=== PATIENT | male | born 1955 | race Two or more races ===

== ENCOUNTER 2025-01-08 05:25 | Inpatient (IN) | payer MEDICAID, MEDICARE, OTHER ==
[~2025-01-08] VITALS: Ht 177.8 cm; Wt 80.4 kg
--- NOTE | 2025-01-08 05:49 | ED.PDOC ---
HPI Comments 69-year-old male came to ER via EMS due to chest pains. Patient with a history of hypertension, has been having left-sided chest pains with shortness of breath on exertion for the past 4 days, worsened yesterday. Had 2 near syncope attacks and dizziness. Patient was seen at [facility] yesterday, noted systolic murmur. Multiple diagnostic tests done Patient transferred to this institution for further evaluation and management. Given aspirin and nitroglycerin while in route. 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 Notes Allergies: Coded Allergies: No Known Drug Allergy (Verified Allergy, Unknown, 01/08/25) Information Source: Patient, Emergency Med Personnel Mode of Arrival: EMS Severity: Moderate Timing: Days Duration: Intermittent Prehospital treatment: ASA, NTG Location: Chest (L) Radiation: Shoulder (L) Quality: Pressure Onset: With Light Exertion Cardiac Risk Factors: Smoker, HTN History of: Similar pain in past Associated Signs and Symptoms: SOB Past Medical History PAST MEDICAL HISTORY: HTN Surgical History: Denies all surgeries Family History Family History: No family hx of Heart ramnoa Social History Smoker: Non-Smoker Alcohol: Denies ETOH Use Drugs: Denies Drug Use Lives In: Home Constitutional: denies: chills, diaphoresis, fatigue, fever, malaise, sweats, weakness, others EENTM: denies: blurred vision, double vision, ear bleeding, ear discharge, ear drainage, ear pain, ear ringing, eye pain, eye redness, hearing loss, mouth pain, mouth swelling, nasal discharge, nose bleeding, nose congestion, nose pain, photophobia, tearing, throat pain, throat swelling, voice changes, others Respiratory: denies: cough, hemoptysis, orthopnea, SOB at rest, shortness of breath, SOB with excertion, stridor, wheezing, others Cardiovascular: reports: chest pain, dizzy spells; denies: diaphoresis, Dyspnea on exertion, edema, irregular heart beat, left arm pain, lightheadedness, palpitations, PND, syncope, others Gastrointestinal: denies: abdomen distended, abdominal pain, blood streaked bowels, constipated, diarrhea, dysphagia, difficulty swallowing, hematemesis, melena, nausea, poor appetite, poor fluid intake, rectal bleeding, rectal pain, vomiting, others Genitourinary: denies: burning, dysuria, flank pain, frequency, hematuria, incontinence, penile discharge, penile sore, pain, testicle pain, testicle swelling, urgency, others Neurological: reports: dizziness; denies: fainting, headache, left sided numbness, left sided weakness, numbness, paresthesia, pre-existing deficit, right sided numbness, right sided weakness, seizure, speech problems, tingling, tremors, weakness, others Musculoskeletal: denies: back pain, gout, joint pain, joint swelling, muscle pain, muscle stiffness, neck pain, others Integumetry: denies: bruises, change in color, change in hair/nails, dryness, laceration, lesions, lumps, rash, wounds, others Allergic/Immunocompromised: denies: Difficulty Healing, Frequent Infections, Hives, Itching, others Hematologic/Lymphatic: denies: anemia, blood clots, easy bleeding, easy bruising, swollen glands, others Endocrine: denies: excessive hunger, excessive sweating, excessive thirst, excessive urination, flushing, intolerance to cold, intolerance to heat, unexplained weight gain, unexplained weight loss, others Psychiatric: denies: anxiety, bipolar disorder, depression, hopeless, panic disorder, schizophrenia, sleepless, suicidal, others Physical Exam General Appearance: No Apparent Distress, Normal HEENT: Normal ENT Inspection, Pharynx Normal, TMs Normal Neck: Full Range of Motion, Non-Tender, Normal, Normal Inspection Respiratory: Chest Non-Tender, Lungs Clear, No Accessory Muscle Use, No Respiratory Distress, Normal Breath Sounds Cardiovascular: No Edema, No JVD, No Murmur, No Gallop, Normal Peripheral Pulses, Regular Rate/Rhythm, Systolic Murmur (Holosystolic murmur) Breast Exam: Deferred Gastrointestinal: No Organomegaly, Non Tender, No Pulsatile Mass, Normal Bowel Sounds, Soft Genitalia: Deferred Pelvic: Deferred Rectal: Deferred Extremities: No calf tenderness, Normal capillary refill, Normal inspection, Normal range of motion, Non-tender, No pedal edema Musculoskeletal : Apperance: Normal Neurologic: Alert, client project coordinator II-XII nml as Tested, No Motor Deficits, Normal Affect, Normal Mood, No Sensory Deficits Cerebellar Function: Normal Reflexes: Normal Skin: Dry, Normal Color, Warm Lymphatic: No Adenopathy EKG EKG : Pulse Rate (adult): 60 Cardiac Rhythm: NSR Block: RBBB Comments More pronounced ST depressions compared to [place] Was a procedure done? Was a procedure done?: No CP Differential Dx Differential Diagnosis: Angina, Anxiety / Panic Attack, Other (aortic valve stenosis, aortic valve insufficiency, papillary muscle rupture) Differential Diagnosis: Angina, Chest Wall Pain, Costochondritis, Esophageal reflux/spasm, Gastritis, Myocardial Infarction X-Ray, Labs, Meds, VS Vital Signs Date Time Temp Pulse Resp B/P (MAP) Pulse Ox O2 Delivery O2 Flow Rate FiO2 01/08/25 05:50 65 17 97 Room Air* 0 21 01/08/25 05:49 60 01/08/25 05:40 60 01/08/25 05:40 98.3 79 19 135/87 (103) 98 98.3 01/08/25 05:37 97.6 62 18 140/69 (92) 98 97.6 Time of 1ST Reevaluation: 05:41 Reevaluation 1ST: Unchanged Patient Education/Counseling: Diagnosis, Treatment, Prognosis, Need For Follow Up Family Education/Counseling: No Family Present Additional Information Previous medical encounters reviewed: from [place] ER The following tests were ordered, and results were reviewed by me: cxr, ekg Additional Information was gathered from interviewing the following independent historians: EMS, ER doctor from [place] I reviewed and agreed with the following test results read by other providers: I discussed treatment and results with medical personnel and: Patient Comprehensive systems review obtained and negative except for what is stated in the HPI. Departure 1 Departure Time of Disposition: 05:55 Impression: Primary Impression: Unstable angina Additional Impression: Systolic murmur Disposition: ADMITTED INPATIENT Admit to: Tele Condition: Serious Discharged With: Self Critical Care Note Critical Care Time?: Yes (35 min-critical care time only) Critical care comment: Due to concerns for patients condition deteriorating, the care required my highest level of attention and readiness to intervene. I assessed the patient, reviewed the medical records, ordered the appropriate tests and treatments, then reassessed for results and responsiveness. I communicated with medical personnel and consultants and formulated a plan of care. Total critical care time excludes any procedures 45 mins Stability Stability form required: No Heart Score Heart Score: Heart Score Response (Comments) Value History Moderate Suspicious 1 EKG Normal 0 Age >65 2 Risk Factors 1 or 2 risk factors 1 Troponin Normal limit 0 Total 4 I personally scribed for VERENICE GREENBERG MD ([email or web address]) on 01/08/25 at 05:49. Electronically submitted by Suman Lopez ([facility]). VERENICE GREENBERG MD Jan 08, 2025 05:49
[2025-01-08 05:50] VITALS: PULSE 65; RESP 17; O2SAT 97
--- NOTE | 2025-01-08 06:20 | DVH ---
CHEST RADIOGRAPH Indication: cp Technique: Single frontal view of the chest was obtained COMPARISON: None FINDINGS: Lines and Tubes: None Lungs: Clear Pleura: No effusion. No pneumothorax. Cardiomediastinal contours: Unremarkable Bones: Unremarkable IMPRESSION: No acute disease.
[2025-01-08 06:45] LABS: Basophils # (auto) 0.1 10 ^3/uL (0-0.2); Basophils % (auto) 0.7 % (0.0-2.0); Eosinophils # (auto) 0.3 10 ^3/uL (0-0.8); Eosinophils % (auto) 3.1 % (0.0-7.0); Hemoglobin 14.1 g/dL (13.5-17.5); Lymphocytes # (auto) 2.3 10 ^3/uL (0.4-5.4); Mean Corpuscular Hemoglobin 29.7 pg (28.0-32.0); Mean Corpuscular Hgb Conc. 33.7 g/dL (32.0-36.0); Mean Corpuscular Volume 88.3 fL (80.0-100.0); Monocytes # (auto) 0.7 10 ^3/uL (0-1.3); Monocytes % (auto) 8.2 % (0.0-12.0); Neutrophils # (auto) 5.6 10 ^3/uL (1.6-8.6); Nucleated Red Blood Cells % 0.1 %; Platelet Count (auto) 269 10^3/uL (140-450); Red Blood Cells 4.76 10^6/uL (4.5-5.90)
[2025-01-08 06:58] LABS: Potassium 3.9 mmol/L (3.5-5.1); Sodium 139 mmol/L (136-145)
[2025-01-08 06:59] LABS: Anion Gap 5 (5-15); Calcium 9.3 mg/dL (8.7-10.4); Carbon Dioxide 27 mmol/L (20-31)
--- NOTE | 2025-01-08 07:01 | ECG ---
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
--- NOTE | 2025-01-08 07:01 | ECG ---
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
[2025-01-08 07:04] LABS: BUN/Creatinine Ratio 23.1 (10.0-20.0); Blood Urea Nitrogen 21 mg/dL (9-23); Glucose 87 mg/dL (74-106)
[2025-01-08 07:13] LABS: Chloride 107 mmol/L (98-107)
[2025-01-08] MEDS: HEPARIN SODIUM (PORCINE) 5000 UNITS/ML 1ML VIAL IV ONE ×2 (07:32→07:46)
[2025-01-08] MEDS: HEPARIN DRIP/D5W 100UNITS/ML 250 ML IV SCH (07:48)
[2025-01-08] MEDS: SODIUM CHLOR 0.9% PF (SALINE LOCK) 10ML VIAL/SYR IV SCH ×2 (07:54→14:05)
[2025-01-08 08:02] VITALS: PULSE 61; RESP 18; O2SAT 97
[2025-01-08] MEDS: ONDANSETRON HCL 4 MG/2 ML VIAL IV ONE (08:09)
[2025-01-08] MEDS: MORPHINE SULFATE 4 MG/ML SYR/VIAL IV ONE (08:09)
[2025-01-08 08:59] LABS: INR 1.01 (0.9-1.15); Prothrombin Time 10.7 sec (9.3-11.8)
[2025-01-08] MEDS ORDERED: ONDANSETRON HCL 4 MG/2 ML VIAL IV PRN (10:00)
[2025-01-08] MEDS ORDERED: MORPHINE SULFATE INJ 2 MG/ml SYRG IV PRN (10:00)
[2025-01-08] MEDS ORDERED: NITROGLYCERIN 0.4 MG SL TAB SL PRN (10:00)
[2025-01-08] MEDS ORDERED: ACETAMINOPHEN 325 MG TAB PO PRN (10:00)
[2025-01-08] MEDS ORDERED: DOCUSATE SOD 100 MG CAP PO PRN (10:00)
--- NOTE | 2025-01-08 10:05 | DVHHP2 ---
Admitting Diagnosis: Chest pain History of Present Illness 69-year-old male came to ER via EMS due to chest pains. Patient with a history of hypertension, has been having left-sided chest pains with shortness of breath on exertion for the past 4 days, worsened yesterday. Had 2 near syncope attacks and dizziness. Patient was seen at [facility] yesterday, noted systolic murmur. Multiple diagnostic tests done Patient transferred to this institution for further evaluation and management. Given aspirin and nitroglycerin while in route. Dr noe was consulted and recommends to have pt transferred to [facility] PAST MEDICAL HISTORY: HTN Surgical History: Denies all surgeries Family History Family History: No family hx of Heart ramona Social History Smoker: Non-Smoker Alcohol: Denies ETOH Use Drugs: Denies Drug Use Lives In: Home Allergies: Coded Allergies: No Known Drug Allergy (Verified Allergy, Unknown, 01/08/25) Current Medications Current Medications Medications (Trade) Dose Ordered Sig/Marie Route PRN Reason Start Time Stop Time Status Last Admin Sodium Chloride (Saline Lock Ns) 10 ml Q8HR IV 01/08/25 14:00 01/08/25 07:54 Heparin Sodium/ Dextrose 250 ml @ 10 mls/hr Q24H IV 01/08/25 07:40 01/08/25 07:48 Clopidogrel Bisulfate (Plavix) 75 mg DAILY PO 01/09/25 10:00 Sodium Chloride (Saline Lock Ns) 10 ml Q8HR IV 01/08/25 14:00 UNV Docusate Sodium (Colace Capsule) 100 mg BIDPRN PRN PO FOR CONSTIPATION 01/08/25 10:00 UNV Acetaminophen (Tylenol Tablet) 650 mg Q6HP PRN PO PAIN SCALE 1-3 OR TEMP>100.4 01/08/25 10:00 UNV Acetaminophen/ Hydrocodone Bitart ([place] 5/325MG Tab) 1 tab Q4HP PRN PO MODERATE PAIN (4-6 PAIN SCALE) 01/08/25 10:00 UNV Ondansetron HCl (Zofran) 4 mg Q4HP PRN IV NAUSEA / VOMITING 01/08/25 10:00 UNV Nitroglycerin (Ntrostat Sublingual) 0.4 mg Q5MINP PRN SL FOR CHEST PAIN 01/08/25 10:00 UNV Morphine Sulfate 2 mg Q30M PRN IV FOR CHEST PAIN 01/08/25 10:00 UNV Vital Signs Vital Signs Date Time Temp Pulse Resp B/P (MAP) Pulse Ox O2 Delivery O2 Flow Rate FiO2 01/08/25 09:32 63 18 130/102 01/08/25 08:02 97 Room Air* 0 21 01/08/25 07:59 97.9 97.9 Physical Exam Patient is 69 years old male, well nourished well developed. No apparent distress HEENT-atraumatic normocephalic Heart-regular rate and rhythm Lungs clear to auscultate bilaterally Abdomen soft nontender nondistended Musculoskeletal-no edema cyanosis Neuro-AO x3, no focal deficits Results Labs Test 01/08/25 09:20 01/08/25 07:22 01/08/25 07:20 01/08/25 05:56 Range/Units Prothrombin Time 10.7 9.3-11.8 sec Prothrombin Time INR 1.01 0.9-1.15 Activated Partial Thromboplast Time 28.0 24.5-34.5 SEC Magnesium Level 2.2 1.6-2.6 mg/dL White Blood Count 9.0 4.4-10.8 10^3/uL Red Blood Count 4.76 4.5-5.90 10^6/uL Hemoglobin 14.1 13.5-17.5 g/dL Hematocrit 42.0 41.0-53.0 % Mean Corpuscular Volume 88.3 80.0-100.0 fL Mean Corpuscular Hemoglobin 29.7 28.0-32.0 pg Mean Corpuscular Hemoglobin Concent 33.7 32.0-36.0 g/dL Red Cell Distribution Width 15.0 H 11.8-14.3 % Platelet Count 269 140-450 10^3/uL Mean Platelet Volume 8.4 6.9-10.8 fL Neutrophils (%) (Auto) 62.0 37.0-80.0 % Lymphocytes (%) (Auto) 26.0 10.0-50.0 % Monocytes (%) (Auto) 8.2 0.0-12.0 % Eosinophils (%) (Auto) 3.1 0.0-7.0 % Basophils (%) (Auto) 0.7 0.0-2.0 % Neutrophils # (Auto) 5.6 1.6-8.6 10 ^3/uL Lymphocytes # (Auto) 2.3 0.4-5.4 10 ^3/uL Monocytes # (Auto) 0.7 0-1.3 10 ^3/uL Eosinophils # (Auto) 0.3 0-0.8 10 ^3/uL Basophils # (Auto) 0.1 0-0.2 10 ^3/uL Nucleated Red Blood Cells 0.1 % Sodium Level 139 136-145 mmol/L Potassium Level 3.9 3.5-5.1 mmol/L Chloride Level 107 98-107 mmol/L Carbon Dioxide Level 27 20-31 mmol/L Anion Gap 5 5-15 Blood Urea Nitrogen 21 9-23 mg/dL Creatinine 0.91 0.700-1.30 mg/dL Glomerular Filtration Rate Calc 91 >90 mL/min BUN/Creatinine Ratio 23.1 H 10.0-20.0 Serum Glucose 87 74-106 mg/dL Calcium Level 9.3 8.7-10.4 mg/dL Primary Diagnosis Unstable angina Plan EKG shows ST depression , troponin negative Start on heparin drip in ED for unstable angina Plavix, heparin drip Cardiology consult for unstable angina Pain control NPO except meds Lin versus medical management Monitor pain NPO except meds Full code Heparin drip for DVT prophylaxis PPI for GI prophylaxis Plan discussed with: Patient Problems List: (1) Unstable angina Status: Acute Date of Service: Jan 08, 2025 Billing Provider: UBALDO PRATIDA MD Common Visit Codes: [id number] INP/OBS CARE (HIGH) UBALDO PARTIDA MD Jan 08, 2025 10:05
[2025-01-08 11:01] LABS: Urine Bacteria None Seen /hpf (None Seen)
[2025-01-08 11:23] LABS: Urine Blood Negative /uL (Negative); Urine Clarity Clear (Clear); Urine Color Yellow (Yellow); Urine Protein, UAD Negative (Negative); Urine Specific Gravity 1.026 (1.001-1.035); Urine Squamous Epithelial Cell None Seen /hpf (<5); Urine Urobilinogen Normal (Negative); Urine WBC < 1 /HPF (0-3); Urine pH 5.5 (5.0-9.0)
--- NOTE | 2025-01-08 12:58 | DVHSR ---
APPROVED REPORT EXAM: Two-dimensional and M-mode echocardiogram with Doppler and color Doppler. Blood Pressure: 130/102 mmHg INDICATION Unstable angina RISK FACTORS Height: 5'10", Weight: 175 DIMENSIONS LVDd (3.8-5.7cm)LA (2D)4.1 (1.9-4.0cm)Aortic Root (2.0-3.7cm) EF (%) 52.0 (55-70%)Rt. Atrium3.8 (1.9-4.0cm)Asc. Aorta cm IVSd (0.7-1.1cm)RV (D)4.0 (1.8-2.4cm) Mitral Valve MitralMitral Stenosis E wave0.94m/sMV Mean GR.mmHg A wave1.23m/sMV Peak GR.mmHg E/A ratio0.82D MVAcm2 DECEL [id number] 1/2 Timems Aortic Valve Aortic ValveAortic Stenosis V11.46m/Shirin Mean GR.22mmHg V23.36m/Shirin Peak GR.45mmHg LVOT Diameter1.9 (1.8-2.4cm)Doppler AVA1.23cm2 AI P 1/2 Dvfe554.02ms Tricuspid Valve TR Velocity2.62m/s [id number] Other Information Quality : Technically LimitedRhythm : Technically limited study due to body habitus. Conclusion very limited study lvef 55% moderate , mean gradient of 22 mhg, mild aortic regurg, calcific valve
[2025-01-08 14:33] LABS: INR 1.03 (0.9-1.15); Partial Thromboplastin Time 61.6 SEC (24.5-34.5); Prothrombin Time 10.9 sec (9.3-11.8)
[2025-01-08 17:26] LABS: LDL Cholesterol 66 mg/dL (< 100); Triglycerides 59 mg/dL (< 150)
[2025-01-08 17:28] LABS: Cholesterol 125 mg/dL (< 200); HDL Cholesterol 48 mg/dL (40-59)
[2025-01-08] MEDS: NICOTINE 14 MG/24HR TOPICAL PATCH TD ONE (17:31)
--- NOTE | 2025-01-08 18:32 | DVHINCON2 ---
ALFONSO NEAL [facility] 01/08/25 1832: Date Seen: Jan 08, 2025 Referring Physician MD Stu Reason for Consultation Unstable angina History of Present Illness This is a 69-year-old man who presented to the emergency room as a transfer from [facility] for HLOC given chest pain. The patient reports intermittent chest pain localized to the left inframammary area and radiating to the substernal and left shoulder area, non provoked, sharp in nature, and associated with near syncopal events x2 prompting him to call 911. En route to the aforementioned facility he was medicated with ASA 324 mg and NTG SL 0.4 mg with some relief of symptoms. Initial 12 lead electrocardiogram revealed a normal sinus rhythm. Subsequent EKGs performed in our facility revealed progressive ST changes mostly to inferior and anterior leads. Serial troponin levels are negative. There is pertinent family history for cardiovascular disease including mother with history of CVAs x2 and a myocardial infarction requiring unspecified cardiac intervention. Significant medical history includes hypertension, heart murmur, and current tobacco use including a 50 pack-year history. Past Medical History Past medical history reviewed. No other significant than mentioned above. Past Surgical History Tonsillectomy Family History See HPI. Social History Denies the use of illicit drugs and alcohol. Admits to tobacco use, see HPI. Allergies: Coded Allergies: No Known Drug Allergy (Verified Allergy, Unknown, 01/08/25) Home Meds Home medications reviewed. Current Medications Current Medications Medications (Trade) Dose Ordered Sig/Marie Route PRN Reason Start Time Stop Time Status Last Admin Sodium Chloride (Saline Lock Ns) 10 ml Q8HR IV 01/08/25 14:00 01/08/25 10:12 DC 01/08/25 07:54 Heparin Sodium/ Dextrose 250 ml @ 10 mls/hr Q24H IV 01/08/25 07:40 01/08/25 07:48 Clopidogrel Bisulfate (Plavix) 75 mg DAILY PO 01/09/25 10:00 Sodium Chloride (Saline Lock Ns) 10 ml Q8HR IV 01/08/25 14:00 01/08/25 14:05 Docusate Sodium (Colace Capsule) 100 mg BIDPRN PRN PO FOR CONSTIPATION 01/08/25 10:00 Acetaminophen (Tylenol Tablet) 650 mg Q6HP PRN PO PAIN SCALE 1-3 OR TEMP>100.4 01/08/25 10:00 Acetaminophen/ Hydrocodone Bitart ([place] 5/325MG Tab) 1 tab Q4HP PRN PO MODERATE PAIN (4-6 PAIN SCALE) 01/08/25 10:00 Ondansetron HCl (Zofran) 4 mg Q4HP PRN IV NAUSEA / VOMITING 01/08/25 10:00 Nitroglycerin (Ntrostat Sublingual) 0.4 mg Q5MINP PRN SL FOR CHEST PAIN 01/08/25 10:00 Morphine Sulfate 2 mg Q30M PRN IV FOR CHEST PAIN 01/08/25 10:00 Nicotine (Nicoderm 14MG/ 24HR) 1 patch DAILY TD 01/09/25 10:00 Review of Systems Constitutional: No symptom reported Ears, Nose, & Throat: No symptom reported Eyes: No symptom reported Neurological: No symptoms reported Pulmonary/Respiratory: No symptom reported Cardiovascular: Chest pain Gastrointestinal: No symptom reported Genitourinary: No symptom reported Musculoskeletal: No symptom reported Skin: No symptom reported Psychiatric: No symptom reported Endocrine: No symptom reported Hemotologic/Lymphatic: No symptom reported Vital Signs Vital Signs Date Time Temp Pulse Resp B/P (MAP) Pulse Ox O2 Delivery O2 Flow Rate FiO2 01/08/25 16:00 59 01/08/25 15:01 18 156/57 (90) 94 01/08/25 08:02 Room Air* 0 21 01/08/25 07:59 97.9 97.9 Physical Exam General Appearance: Cooperative. Well developed. Well nourished. In no acute distress Head Exam: Normal inspection Neck Exam: Normal inspection. Non-tender. Normal alignment Pulmonary/Respiratory: Chest non-tender. Clear bilateral breath sounds Cardiovascular/Chest: Regular rate and rhythm. S1, S2. Sinus rhythm with progressive ST changes to inferior and anterior leads. Systolic murmur IV/ radiates to the right substernal border, non-radiating to carotids Peripheral Pulses: 2+ Radial (R). 2+ Radial (L). 2+ Pedal (R). 2+ Pedal (L) Abdominal Exam: Normal bowel sounds. Soft. Ankle Exam: Negative ankle edema Lower extremities: Negative lower extremity edema Neuro/Mental Status: A&O x4. Coherent Thoughts/Psych: Normal thought pattern. Appropriate mood and affect. Talkative Appearance: In no acute distress Skin Exam: Normal inspection. Normal color. Warm. Dry Labs/Diagnostic Data Labs Test 01/08/25 13:53 01/08/25 11:00 01/08/25 09:20 01/08/25 07:20 Range/Units Prothrombin Time 10.9 9.3-11.8 sec Prothrombin Time INR 1.03 0.9-1.15 Activated Partial Thromboplast Time 61.6 H 24.5-34.5 SEC Urine Color Yellow Yellow Urine Clarity Clear Clear Urine pH 5.5 5.0-9.0 Urine Specific [place] 1.026 1.001-1.035 Urine Protein Negative Negative Urine Ketones Trace Negative Urine Blood Negative Negative /uL Urine Nitrite Negative Negative Urine Bilirubin Negative Negative Urine Urobilinogen Normal Negative mg/dL Urine Leukocyte Esterase Negative Negative /uL Urine RBC 1 0 - 3 /hpf Urine Microscopic WBC < 1 0-3 /HPF Urine Squamous Epithelial Cells None seen <5 /hpf Urine Bacteria None seen None Seen /hpf Urine Glucose Normal Normal mg/dL Troponin I High Sensitivity 7 </=54 ng/L Magnesium Level 2.2 1.6-2.6 mg/dL Test 01/08/25 05:56 Range/Units White Blood Count 9.0 4.4-10.8 10^3/uL Red Blood Count 4.76 4.5-5.90 10^6/uL Hemoglobin 14.1 13.5-17.5 g/dL Hematocrit 42.0 41.0-53.0 % Mean Corpuscular Volume 88.3 80.0-100.0 fL Mean Corpuscular Hemoglobin 29.7 28.0-32.0 pg Mean Corpuscular Hemoglobin Concent 33.7 32.0-36.0 g/dL Red Cell Distribution Width 15.0 H 11.8-14.3 % Platelet Count 269 140-450 10^3/uL Mean Platelet Volume 8.4 6.9-10.8 fL Neutrophils (%) (Auto) 62.0 37.0-80.0 % Lymphocytes (%) (Auto) 26.0 10.0-50.0 % Monocytes (%) (Auto) 8.2 0.0-12.0 % Eosinophils (%) (Auto) 3.1 0.0-7.0 % Basophils (%) (Auto) 0.7 0.0-2.0 % Neutrophils # (Auto) 5.6 1.6-8.6 10 ^3/uL Lymphocytes # (Auto) 2.3 0.4-5.4 10 ^3/uL Monocytes # (Auto) 0.7 0-1.3 10 ^3/uL Eosinophils # (Auto) 0.3 0-0.8 10 ^3/uL Basophils # (Auto) 0.1 0-0.2 10 ^3/uL Nucleated Red Blood Cells 0.1 % Sodium Level 139 136-145 mmol/L Potassium Level 3.9 3.5-5.1 mmol/L Chloride Level 107 98-107 mmol/L Carbon Dioxide Level 27 20-31 mmol/L Anion Gap 5 5-15 Blood Urea Nitrogen 21 9-23 mg/dL Creatinine 0.91 0.700-1.30 mg/dL Glomerular Filtration Rate Calc 91 >90 mL/min BUN/Creatinine Ratio 23.1 H 10.0-20.0 Serum Glucose 87 74-106 mg/dL Calcium Level 9.3 8.7-10.4 mg/dL Assessment Unstable angina rule out coronary artery disease Aortic valve stenosis, moderate degree Pertinent family history for CV disease Hypertension Nicotine dependence Plan/Recommendation (Dr. Guy) Transthoracic echocardiogram revealed LVEF 55% with moderate aortic stenosis. The patient has been scheduled for a coronary angiogram with left cardiac catheterization with Dr. Guy on 01/10/2025. In the meantime, continue serial troponin level, heparin drip per ACS protocol, single antiplatelet therapy, and lipid-lowering agent. Repeat twelve-lead electrocardiogram in the morning. Continue chest pain protocol. Monitor ECG changes and notify accordingly. Initiate nicotine patch. Thank you for allowing us to participate in this patient's care. Please call if you have any questions or concerns. Critical care time: 45 min. This medical document was created using an electronic medical record system with voice recognition software and computerized dictation system. Although this document has been carefully r eviewed, there might still be some phonetic and typographical errors. Occasional wrong-word or ``sound-alike substitutions may have occurred due to the inherent limitations of voice recognition software. These areas are purely typographical due to imperfections of the software programs and do not reflect any compromise in the patient's medical care. Please read the chart carefully and recognize, using context, where these substitutions have occurred. Plan discussed with: Patient, Other NYHA Physical activity limitations: NA Date of Service: Jan 08, 2025 Billing Provider: ALFONSO NEAL Cardiology Common Codes: 61278-[id number] CARE 30-74 MIN RONNELL GUY MD 01/09/25 1546: Allergies: Coded Allergies: No Known Drug Allergy (Verified Allergy, Unknown, 01/08/25) Plan/Recommendation AGREE WITH [facility]ERS ASSESSMENT AND PLAN PT SEEN AND EXAMINED TRANSIENT ST DEPRESSIONS NOTED ON SERIAL ECGS MULTIPLE CAD RISK FACTORS, [facility] PLANNED INFORMED CONSENT OBTAINED Plan discussed with: Patient NEAL,ALFONSO RAMSAY Jan 08, 2025 18:32 RONNELL GUY MD Jan 09, 2025 15:46
[2025-01-08] MEDS ORDERED: hydrALAZINE HCL 20 MG/ML VL IV PRN (18:45)
[2025-01-08 20:38] LABS: INR 1.01 (0.9-1.15); Partial Thromboplastin Time 57.8 SEC (24.5-34.5); Prothrombin Time 10.7 sec (9.3-11.8)
[2025-01-08 20:41] VITALS: PULSE 66; RESP 17; O2SAT 98
[2025-01-08 21:04] VITALS: PULSE 68; RESP 18; O2SAT 97
[2025-01-08] MEDS: ATORVASTATIN 20 MG TAB PO SCH (21:07)
[2025-01-08 22:12] VITALS: BP 156/76; PULSE 68; RESP 18; TEMP 97.6; O2SAT 98
[2025-01-08 22:30] VITALS: RESP 18; O2SAT 96
--- NOTE | 2025-01-08 23:38 | ECG ---
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
[2025-01-09] VITALS (8 sets, daily range): BP systolic 108–151; BP diastolic 64–80; PULSE 51–80; RESP 16–19; TEMP 97.6–98.6; O2SAT 92–99
--- NOTE | 2025-01-09 00:15 | ECG ---
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
[2025-01-09 03:07] LABS: Basophils # (auto) 0.1 10 ^3/uL (0-0.2); Basophils % (auto) 0.9 % (0.0-2.0); Eosinophils # (auto) 0.2 10 ^3/uL (0-0.8); Eosinophils % (auto) 2.8 % (0.0-7.0); Hematocrit 42.4 % (41.0-53.0); Hemoglobin 14.2 g/dL (13.5-17.5); Lymphocytes # (auto) 1.8 10 ^3/uL (0.4-5.4); Lymphocytes % (auto) 24.1 % (10.0-50.0); Mean Corpuscular Hemoglobin 29.5 pg (28.0-32.0); Mean Corpuscular Hgb Conc. 33.3 g/dL (32.0-36.0); Mean Corpuscular Volume 88.6 fL (80.0-100.0); Monocytes # (auto) 0.4 10 ^3/uL (0-1.3); Monocytes % (auto) 6.1 % (0.0-12.0); Neutrophils # (auto) 4.8 10 ^3/uL (1.6-8.6); Neutrophils % (auto) 66.1 % (37.0-80.0); Nucleated Red Blood Cells % 0.1 %; Platelet Count (auto) 246 10^3/uL (140-450); Red Blood Cells 4.79 10^6/uL (4.5-5.90); Red Cell Distribution Width 15.4 % (11.8-14.3); White Blood Cell 7.3 10^3/uL (4.4-10.8)
[2025-01-09 03:20] LABS: INR 1.03 (0.9-1.15); Partial Thromboplastin Time 56.4 SEC (24.5-34.5); Prothrombin Time 10.9 sec (9.3-11.8)
[2025-01-09 03:50] LABS: Alanine Aminotransferase 19 U/L (7-40); Alkaline Phosphatase 78 U/L (46-116); Anion Gap 4 (5-15); Aspartate Aminotransferase 15 U/L (13-40); BUN/Creatinine Ratio 22.8 (10.0-20.0); Blood Urea Nitrogen 21 mg/dL (9-23); Calcium 9.5 mg/dL (8.7-10.4); Carbon Dioxide 28 mmol/L (20-31); Chloride 107 mmol/L (98-107); Glucose 95 mg/dL (74-106); Potassium 4.2 mmol/L (3.5-5.1); Sodium 139 mmol/L (136-145); Total Protein 6.7 g/dL (5.7-8.2)
[2025-01-09 03:51] LABS: Albumin 4.2 g/dL (3.2-4.8); Bilirubin, Total 0.8 mg/dL (0.2-1.0)
[2025-01-09] MEDS: CLOPIDOGREL BISULFATE 75 MG TAB PO SCH (08:59)
[2025-01-09] MEDS: NICOTINE 14 MG/24HR TOPICAL PATCH TD SCH (09:00)
[2025-01-09] MEDS: LISINOPRIL 20 MG TAB PO SCH (09:00)
--- NOTE | 2025-01-09 10:56 | DVHPN2 ---
[facility] 01/09/25 1056: Consult Progress Note Date Seen: Jan 09, 2025 Subjective Review of Systems: CVS:Abnormal, RESPIRATORY:Normal, NEURO:Normal Other Systems: C/o chest pain 5/10 Objective vital signs Vital Sign Date Time Temp Pulse Resp B/P (MAP) Pulse Ox O2 Delivery O2 Flow Rate FiO2 01/09/25 09:00 98.2 71 16 145/78 (100) 99 98.2 01/09/25 07:45 Room Air* 0 21 Total Intake and Output 01/08/25 01/08/25 01/09/25 15:00 23:00 07:00 Intake Total 70 ml 40 ml Output Total 300 ml Balance 70 ml 40 ml -300 ml medications Current Medications Medications Dose Ordered Sig/Marie Route Start Time Stop Time Status Last Admin Dose Admin Heparin Sodium/ Dextrose 250 ml @ 10 mls/hr Q24H IV 01/08/25 07:40 01/09/25 05:01 10 MLS/HR Clopidogrel Bisulfate 75 mg DAILY PO 01/09/25 10:00 01/09/25 08:59 75 MG Sodium Chloride 10 ml Q8HR IV 01/08/25 14:00 01/09/25 05:01 10 ML Docusate Sodium 100 mg BIDPRN PRN PO 01/08/25 10:00 Acetaminophen 650 mg Q6HP PRN PO 01/08/25 10:00 Acetaminophen/ Hydrocodone Bitart 1 tab Q4HP PRN PO 01/08/25 10:00 Ondansetron HCl 4 mg Q4HP PRN IV 01/08/25 10:00 Nitroglycerin 0.4 mg Q5MINP PRN SL 01/08/25 10:00 Morphine Sulfate 2 mg Q30M PRN IV 01/08/25 10:00 Nicotine 1 patch DAILY TD 01/09/25 10:00 01/09/25 09:00 1 PATCH Atorvastatin Calcium 40 mg HS PO 01/08/25 22:00 01/08/25 21:07 40 MG Hydralazine HCl 10 mg Q6HP PRN IV 01/08/25 18:45 Lisinopril 20 mg DAILY PO 01/09/25 10:00 01/09/25 09:00 20 MG Examination: LUNGS:Normal, CVS:Normal, NEURO:Normal laboratory and microbiology Laboratory Tests 01/09/25 02:53 Test 01/09/25 02:53 Range/Units Serum Glucose 95 74-106 mg/dL Problem List/Assessment/Plan Problem List/Assessment/Plan Unstable angina rule out coronary artery disease Aortic valve stenosis, moderate degree Pertinent family history for CV disease Pre-diabetes, newly diagnosed Hypertension Nicotine dependence Plan/Recommendation (Dr. Guy) Transthoracic echocardiogram revealed LVEF 55% with moderate aortic stenosis. The patient has been scheduled for a coronary angiogram with left cardiac catheterization with Dr. Guy on 01/10/2025. In the meantime, continue heparin drip per ACS protocol, single antiplatelet therapy, and lipid-lowering agent. Continue chest pain protocol. Monitor ECG changes and notify accordingly. Nicotine patch. Strongly counseled on tobacco cessation. Obtain UDS. Thank you for allowing us to participate in this patient's care. Please call if you have any questions or concerns. Critical care time: 45 min. This medical document was created using an electronic medical record system with voice recognition software and computerized dictation system. Although this document has been carefully reviewed, there might still be some phonetic and typographical errors. Occasional wrong-word or ``sound-alike substitutions may have occurred due to the inherent limitations of voice recognition software. These areas are purely typographical due to imperfections of the software programs and do not reflect any compromise in the patient's medical care. Please read the chart carefully and recognize, using context, where these substitutions have occurred. Plan discussed with: Patient, Other Date of Service: Jan 09, 2025 Billing Provider: [facility] Cardiology Common Codes: [id number] HOSP CARE(High RONNELL GUY MD 01/09/25 1556: Consult Progress Note Problem List/Assessment/Plan Problem List/Assessment/Plan pt see this afteroon, no symptoms, he wishes to proceed with cath ALFONSO [facility] Jan 09, 2025 10:56 RONNELL GUY MD Jan 09, 2025 15:56
--- NOTE | 2025-01-09 10:59 | ECG ---
[facility] Test Date: 2025-01-09 Test Time: 10:56:46 Pat Name: BROOKLYNN ABEL Department: Room: 0296T B Gender: M Vehicle Return Associate: ht : 1955 Requested By: ALF[facility]SO [facility]AL Order Number: [id number] Reading MD: Tenzin Herrera Measurements Intervals [place] Rate: 65 P: 6 [place]: 136 QRS: 68 QRSD: 110 T: 35 QT: 427 QTc: 444 Interpretive Statements Sinus rhythm Probable left atrial enlargement RSR' in V1 or V2, right VCD or RVH Baseline wander in lead(s) V1 Electronically Signed On 01-12-2025 20:32:51 PDT by Tenzin Herrera Please click the below link to view image of tracing.
--- NOTE | 2025-01-09 11:53 | DVHPN2 ---
Subjective The patient seen and examined at bedside. Complains of chest pain. Reviewed: Care Plan, H&P, Labs, Medications, Previous Orders, Radiology Changes from previous H/P or p: No Changes Objective Vitals Vital Signs Date Time Temp Pulse Resp B/P (MAP) Pulse Ox O2 Delivery O2 Flow Rate FiO2 01/09/25 09:00 98.2 71 16 145/78 (100) 99 98.2 01/09/25 07:45 Room Air* 0 21 Intake/Output Intake and Output 01/09/25 06:59 Intake Total 110 ml Output Total 300 ml Balance -190 ml IV Total 110 ml Output Urine Total 300 ml General Appearance: Alert, Oriented X3, Cooperative, No acute distress HEENT: Atraumatic, PERRLA, EOMI, Mucous membr. moist/pink Neck: Supple Cardiovascular: Regular rate, Normal S1, Normal S2, No murmurs, Gallops, Rubs Abdomen: Normal bowel sounds, Soft, No tenderness, No hepatospenomegaly Neuro: Cranial nerves 3-12 NL Psych/Mental Status: Mental status NL Medications Current Medications Medications Dose Ordered Sig/Marie Route Start Time Stop Time Status Last Admin Dose Admin Heparin Sodium/ Dextrose 250 ml @ 10 mls/hr Q24H IV 01/08/25 07:40 01/09/25 05:01 10 MLS/HR Clopidogrel Bisulfate 75 mg DAILY PO 01/09/25 10:00 01/09/25 08:59 75 MG Sodium Chloride 10 ml Q8HR IV 01/08/25 14:00 01/09/25 05:01 10 ML Docusate Sodium 100 mg BIDPRN PRN PO 01/08/25 10:00 Acetaminophen 650 mg Q6HP PRN PO 01/08/25 10:00 Acetaminophen/ Hydrocodone Bitart 1 tab Q4HP PRN PO 01/08/25 10:00 Ondansetron HCl 4 mg Q4HP PRN IV 01/08/25 10:00 Nitroglycerin 0.4 mg Q5MINP PRN SL 01/08/25 10:00 Morphine Sulfate 2 mg Q30M PRN IV 01/08/25 10:00 Nicotine 1 patch DAILY TD 01/09/25 10:00 01/09/25 09:00 1 PATCH Atorvastatin Calcium 40 mg HS PO 01/08/25 22:00 01/08/25 21:07 40 MG Hydralazine HCl 10 mg Q6HP PRN IV 01/08/25 18:45 Lisinopril 20 mg DAILY PO 01/09/25 10:00 01/09/25 09:00 20 MG Laboratory Results Laboratory Tests 01/09/25 02:53 Chemistry Test 01/09/25 02:53 Albumin 4.2 g/dL (3.2-4.8) Calcium Level 9.5 mg/dL (8.7-10.4) Total Protein 6.7 g/dL (5.7-8.2) Coagulation Test 01/08/25 13:53 01/08/25 20:04 01/09/25 02:53 Prothrombin Time 10.9 sec (9.3-11.8) 10.7 sec (9.3-11.8) 10.9 sec (9.3-11.8) Prothrombin Time INR 1.03 (0.9-1.15) 1.01 (0.9-1.15) 1.03 (0.9-1.15) Activated Partial Thromboplast Time 61.6 SEC (24.5-34.5) H 57.8 SEC (24.5-34.5) H 56.4 SEC (24.5-34.5) H LFT Test 01/09/25 02:53 Alanine Aminotransferase (ALT) 19 U/L (7-40) Alkaline Phosphatase 78 U/L (46-116) Aspartate Amino Transferase (AST) 15 U/L (13-40) Total Bilirubin 0.8 mg/dL (0.2-1.0) Urinalysis Test 01/08/25 11:00 Urine Color Yellow (Yellow) Urine Clarity Clear (Clear) Urine pH 5.5 (5.0-9.0) Urine Specific [place] 1.026 (1.001-1.035) Urine Protein Negative (Negative) Urine Ketones Trace (Negative) Urine Blood Negative /uL (Negative) Urine Nitrite Negative (Negative) Urine Bilirubin Negative (Negative) Urine Urobilinogen Normal mg/dL (Negative) Urine Leukocyte Esterase Negative /uL (Negative) Urine RBC 1 /hpf (0 - 3) Urine Microscopic WBC < 1 /HPF (0-3) Urine Squamous Epithelial Cells None seen /hpf (<5) Urine Bacteria None seen /hpf (None Seen) Urine Glucose Normal mg/dL (Normal) Labs and/or images reviewed: Labs reviewed by me Assessment/Plan Assessment/Plan Unstable angina Continue current management. Continue with aspirin, heparin drip. Waiting for program architect to see the patient. Plan discussed with: Patient Date of Service: Jan 09, 2025 Billing Provider: WM PAULA MD Common Visit Codes: [id number] INP/OBS CARE(HIGH) WM PAULA MD Jan 09, 2025 11:53
[2025-01-09] MEDS: HYDROcodone-ACET 5/325MG TAB PO PRN (17:54)
[2025-01-10] MEDS: TEMAZEPAM 15 MG CAP PO PRN (01:14)
[2025-01-10 05:00] VITALS: BP 109/70; PULSE 63; RESP 18; TEMP 97.9; O2SAT 91
[2025-01-10 07:30] VITALS: PULSE 61
[2025-01-10 09:00] VITALS: BP 146/65; PULSE 65; RESP 18; TEMP 98.4; O2SAT 96
[2025-01-10 10:48] LABS: Basophils # (auto) 0 10 ^3/uL (0-0.2); Basophils % (auto) 0.6 % (0.0-2.0); Eosinophils # (auto) 0.1 10 ^3/uL (0-0.8); Eosinophils % (auto) 1.7 % (0.0-7.0); Hematocrit 39.7 % (41.0-53.0); Hemoglobin 13.5 g/dL (13.5-17.5); Lymphocytes # (auto) 1.6 10 ^3/uL (0.4-5.4); Lymphocytes % (auto) 21.2 % (10.0-50.0); Mean Corpuscular Hemoglobin 30.1 pg (28.0-32.0); Mean Corpuscular Hgb Conc. 34.1 g/dL (32.0-36.0); Mean Corpuscular Volume 88.3 fL (80.0-100.0); Monocytes # (auto) 0.7 10 ^3/uL (0-1.3); Monocytes % (auto) 9.4 % (0.0-12.0); Neutrophils # (auto) 4.9 10 ^3/uL (1.6-8.6); Neutrophils % (auto) 67.1 % (37.0-80.0); Nucleated Red Blood Cells % 0.1 %; Platelet Count (auto) 241 10^3/uL (140-450); Red Cell Distribution Width 15.7 % (11.8-14.3); White Blood Cell 7.4 10^3/uL (4.4-10.8)
[2025-01-10 11:02] LABS: INR 1.04 (0.9-1.15); Partial Thromboplastin Time 40.4 SEC (24.5-34.5)
[2025-01-10 11:04] LABS: Alanine Aminotransferase 17 U/L (7-40); Albumin 4.2 g/dL (3.2-4.8); Alkaline Phosphatase 68 U/L (46-116); Anion Gap 5 (5-15); Aspartate Aminotransferase 13 U/L (13-40); BUN/Creatinine Ratio 21.2 (10.0-20.0); Blood Urea Nitrogen 18 mg/dL (9-23); Calcium 9.4 mg/dL (8.7-10.4); Carbon Dioxide 29 mmol/L (20-31); Chloride 107 mmol/L (98-107); Potassium 3.9 mmol/L (3.5-5.1); Sodium 141 mmol/L (136-145); Total Protein 6.5 g/dL (5.7-8.2)
[2025-01-10 11:05] LABS: Bilirubin, Total 0.7 mg/dL (0.2-1.0); Glucose 116 mg/dL (74-106)
--- NOTE | 2025-01-10 11:44 | DVHPN2 ---
Progress Note Date Seen: Jan 10, 2025 Medical Necessity Reason Pt with a Central, PICC or Fol: No Objective vital signs Vital Sign Date Time Temp Pulse Resp B/P (MAP) Pulse Ox O2 Delivery O2 Flow Rate FiO2 01/10/25 09:00 98.4 65 18 146/65 (92) 96 98.4 01/10/25 07:30 Room Air* 0 21 Total Intake and Output 01/09/25 01/09/25 01/10/25 14:59 22:59 06:59 Intake Total 480 ml 945 ml 1045 ml Balance 480 ml 945 ml 1045 ml medications Current Medications Medications Dose Ordered Sig/Marie Route Start Time Stop Time Status Last Admin Dose Admin Heparin Sodium/ Dextrose 250 ml @ 10 mls/hr Q24H IV 01/08/25 07:40 01/10/25 07:38 10 MLS/HR Clopidogrel Bisulfate 75 mg DAILY PO 01/09/25 10:00 01/10/25 08:58 75 MG Sodium Chloride 10 ml Q8HR IV 01/08/25 14:00 01/10/25 05:37 10 ML Docusate Sodium 100 mg BIDPRN PRN PO 01/08/25 10:00 Acetaminophen 650 mg Q6HP PRN PO 01/08/25 10:00 Acetaminophen/ Hydrocodone Bitart 1 tab Q4HP PRN PO 01/08/25 10:00 01/09/25 17:54 1 TAB Ondansetron HCl 4 mg Q4HP PRN IV 01/08/25 10:00 Nitroglycerin 0.4 mg Q5MINP PRN SL 01/08/25 10:00 Morphine Sulfate 2 mg Q30M PRN IV 01/08/25 10:00 Nicotine 1 patch DAILY TD 01/09/25 10:00 01/10/25 08:59 1 PATCH Atorvastatin Calcium 40 mg HS PO 01/08/25 22:00 01/08/25 21:07 40 MG Hydralazine HCl 10 mg Q6HP PRN IV 01/08/25 18:45 Lisinopril 20 mg DAILY PO 01/09/25 10:00 01/10/25 08:59 20 MG Temazepam 15 mg QHSP PRN PO 01/09/25 12:15 01/10/25 01:14 15 MG Examination: GENERAL:Abnormal, HEENT:Abnormal, LUNGS:Abnormal, CVS:Abnormal, ABDOMEN:Abnormal laboratory and microbiology Laboratory Tests 01/10/25 10:25 Test 01/10/25 10:25 Range/Units Serum Glucose 116 H 74-106 mg/dL Problem List/Assessment/Plan Problem List/Assessment/Plan ACS moderate aortic stenosis htn pt refuses LHC which is ok can do outpt fu ,trops are - asa, statin, BB fu with his pcp Plan discussed with: Patient My Orders My Orders Orders - RONNELL GUY MD Procedure Category Date Status Time Cl Left Heart Cath CL 01/10/25 Logged 08:28 Date of Service: Jan 10, 2025 Billing Provider: RONNELL GUY MD Common Visit Codes: NOT BILLABLE RONNELL GUY MD Jan 10, 2025 11:43
--- NOTE | 2025-01-10 12:21 | CONS ---
Pharmacy Clinical Information: INCREASE HEPARIN DRIP RATE TO 1200 UNITS/HR = 12 ML/HR PER APTT OF 40.4 NEXT APTT DRAW SCHEDULED FOR 1800 PER RX PROTOCOL MARIELY NAILS PHARMACIST Jan 10, 2025 12:21
[2025-01-10] MEDS: HEPARIN DRIP/D5W 100UNITS/ML 250 ML IV SCH (12:30)
[2025-01-10 12:41] VITALS: BP 164/80; PULSE 71; RESP 18; TEMP 97.6; O2SAT 99
== END 2025-01-10 14:26 | disposition left against medical advice (07) | DRG 311 ==
LOC: ER 05:25 → EDBD 05:25 → OVERFLOW 09:55 → TELE-WESTW 22:12
PROVIDERS: ADMIT Internal Medicine; ATTEND Internal Medicine
DX: I20.0 Unstable angina (principal); I35.0 Nonrheumatic aortic (valve) stenosis; I10 Essential (primary) hypertension; F17.200 Nicotine dependence, unspecified, uncomplicated; Z82.49 Family history of ischemic heart disease and other diseases of the circulatory system; Z53.29 Procedure and treatment not carried out because of patient's decision for other reasons; Z82.3 Family history of stroke
CPT/HCPCS: 36415; 71045; 80048; 80053; 80061; 81001; 83036; 83735; 83880; 84443; 84484; 85025; 85610; 85730; 86850; 86900; 86901; 87081; 93005; 93306; 96374; 96375; 99291; G0378; J2405